=== PATIENT | male | born 1980 | race Caucasian/White ===

== ENCOUNTER 2019-12-03 12:14 | Outpatient (CLI) | payer BC, SELFPAY ==
--- NOTE | ~2019-12-03 | XR_ITS ---
XR_RIBSRTCXR1_CR DATE: 12/03/2019 12:31 INDICATION: Mid to lower right rib pain. Cough. TECHNIQUE: COMPARISON: None FINDINGS: There is callus associated with advanced healing or healed fracture of the posterolateral r ight ninth rib. There is a minimally displaced more recent posterolateral right 10th rib fracture. Status post sternotomy and cardiac valve replacement. There is mild discoid atelectasis or scarring in both lower lungs. No pulmonary consolidation, pleura l effusion or pneumothorax. IMPRESSION: Recent posterolateral right 10th rib fracture Healing or healed right ninth rib fracture Reviewed, dictated and finalized at [facility]. Reviewed, dictated and finalized at location A.
== END 2019-12-03 12:15 | disposition home or self-care (01) ==
LOC: ANHIMG 12:17
PROVIDERS: PCP Physician Assistant; Visit Provider Physician Assistant
DX: S22.31XA Fracture of one rib, right side, initial encounter for closed fracture (principal); X58.XXXA Exposure to other specified factors, initial encounter
CPT/HCPCS: 71101

== ENCOUNTER 2020-09-24 16:20 | Outpatient (CLI) | payer BC, SELFPAY ==
--- NOTE | ~2020-09-24 | XR_ITS ---
XR hip BI 2V w AP pelvis DATE: 09/24/2020 16:48 INDICATION: Right hip and groin pain for 4 to 5 months. No injury. TECHNIQUE: AP pelvis. AP and lateral views of each hip. COMPARISON: None FINDINGS: No pelvic fracture or bone destruction. The pubic symphysis and sacroiliac joints are intac t. Hip joint spaces are symmetric and relatively preserved. No fracture, dislocation, avascular necro sis or bone destruction of either hip is detected. Multiple bilateral calcified pelvic phleboliths. IMPRESSION: No significant radiographic abnormality of the pelvis or either hip Reviewed, dictated and finalized at location B.
== END 2020-09-24 16:21 | disposition home or self-care (01) ==
LOC: ANHIMG 16:29
PROVIDERS: PCP Physician Assistant; Visit Provider Physician Assistant
DX: M25.551 Pain in right hip (principal); M25.552 Pain in left hip
CPT/HCPCS: 73521

== ENCOUNTER 2020-10-08 15:24 | Outpatient (CLI) | payer BC, SELFPAY ==
--- NOTE | ~2020-10-08 | XR_ITS ---
EXAMINATION: XR lumbar spine 6V w bending DATE: 10/08/2020 15:51 INDICATION: Low back pain TECHNIQUE: Anteroposterior, lateral in neutral, flexion and extension, and bilateral oblique views of the lumbar spine, and cone-down lateral view of the lumbosacral junction were obtained. COMPARISON: None. FINDINGS: The vertebral body heights and intervertebral disc spaces are normal. There are 3 mm of ret rolisthesis of L5 on S1. There is no laxity with flexion or extension. There is no fracture. There is mild facet osteoarthritis of the lower lumbar spine. Small degenerative osteophytes project from the anterior endplates of multiple vertebral bodies. IMPRESSION: 1. Mild lumbar spondylosis without acute findings. Reviewed, dictated and finalized at location A.
== END 2020-10-08 15:25 | disposition home or self-care (01) ==
LOC: ANHIMG 15:30
PROVIDERS: PCP Physician Assistant; Visit Provider Physician Assistant
DX: M54.5 Low back pain (principal); M47.816 Spondylosis without myelopathy or radiculopathy, lumbar region
CPT/HCPCS: 72114

== ENCOUNTER 2020-11-24 16:23 | Outpatient (CLI) | payer BC, SELFPAY ==
--- NOTE | ~2020-11-24 | XR_ITS ---
XR hip BI 2V w AP pelvis 11/24/2020 16:37 Indication: Bilateral hip pain Procedure: 3 views of each hip Comparison: 09/24/2020 Findings: There is mild bilateral symmetric osteoarthritis of the hips. No fracture or traumatic stuart lignment. Sacral foramen are symmetric. There are pelvic phleboliths. No significant soft tissue abno rmality. No foreign bodies. Impression: 1: Mild symmetric osteoarthritis of the hips. Reviewed, dictated and finalized at location A. Impression: 1: Mild symmetric osteoarthritis of the hips.
== END 2020-11-24 16:24 ==
LOC: MICIMG 16:24
PROVIDERS: Visit Provider Nurse Practitioner Adult Health
DX: M16.0 Bilateral primary osteoarthritis of hip (principal)
CPT/HCPCS: 73521

== ENCOUNTER 2020-12-25 15:25 | Outpatient (CLI) | payer BC, SELFPAY ==
--- NOTE | ~2020-12-25 | MR_ITS ---
EXAMINATION: MR lumbar spine wo con DATE: 12/25/2020 15:54 INDICATION: Lumbar radiculopathy. TECHNIQUE: Magnetic resonance imaging (MRI) of the lumbar spine was performed without intravenous con trast. Sequences included sagittal T2-weighted FSE, sagittal T2-weighted FS FSE, sagittal T1-weighted FSE, and axial T2-weighted FSE. COMPARISON: Lumbar spine radiographs 10/08/2020 FINDINGS: Bone alignment is normal. There are Schmorl's nodes at many levels. There is mildly decreas ed disc height at L3-L4. The distal spinal cord signal intensity is normal. The conus medullaris is a t L1-L2. Epidural lipomatosis is noted. The following disc levels are specifically discussed: L1-L2: The disc does not extend beyond the endplate margin. There is mild bilateral facet joint osteo arthritis. There is no neural foraminal stenosis. There is no central canal stenosis. L2-L3: The disc does not extend beyond the endplate margin. There is mild bilateral facet joint osteo arthritis. There is no neural foraminal stenosis. There is no central canal stenosis. L3-L4: There is a left foraminal protrusion. There is mild bilateral facet joint osteoarthritis. Ther e is moderate left neural foraminal stenosis. There is no central canal stenosis. L4-L5: The disc is bulging. There is mild bilateral facet joint osteoarthritis. There is mild bilater al neural foraminal stenosis. There is mild central canal stenosis. L5-S1: The disc is mildly bulging and has an annular fissure. There is mild bilateral facet joint ost eoarthritis. There is mild bilateral neural foraminal stenosis. There is no central canal stenosis. IMPRESSION: 1. Mild lumbar spondylosis. Reviewed, dictated and finalized at location A. IMPRESSION: 1. Mild lumbar spondylosis.
== END 2020-12-25 15:26 ==
LOC: MICIMG 15:26
PROVIDERS: Visit Provider Nurse Practitioner Adult Health
DX: M47.26 Other spondylosis with radiculopathy, lumbar region (principal)
CPT/HCPCS: 72148

== ENCOUNTER 2022-09-01 08:52 | Emergency (ER) | payer BC, SELFPAY ==
--- NOTE | ~2022-09-01 | CT_ITS ---
EXAMINATION: CT soft tissue neck w con DATE: 09/01/2022 10:06 INDICATION: Neck swelling. Feeling sick for one week. Sore throat. TECHNIQUE: Computed tomography (CT) of the neck was performed with 75 mL Omnipaque-350 intravenous co ntrast. Automated exposure control and iterative reconstruction technique were employed. The dose-susan gth product was 560.01 mGy-cm. COMPARISON: None FINDINGS: There is mucosal thickening in the pharynx. There is enlargement of the right palatine tons il. There is thickening of the epiglottis and aryepiglottic folds. There is fat stranding in the neck , right worse than left, consistent with edema versus inflammation. There are no pathologically enlar ged lymph nodes. There is mild plaque in the proximal left internal carotid artery with 0% stenosis r elative to normal distal artery lumen diameter. There is kyphosis and mild spondylosis of cervical sp ine. IMPRESSION: 1. Mucosal thickening involving the pharynx and supraglottic larynx, consistent with inflammation (in cluding epiglottitis). No abscess. Reviewed, dictated and finalized at location A. L STRETCHER IMPRESSION: 1. Mucosal thickening involving the pharynx and supraglottic larynx, consistent with inflammation (including epiglottitis). No abscess.
--- NOTE | ~2022-09-01 | XR_ITS ---
Clinical Indication: Cough PA and lateral views of the chest: Comparison: None Findings: The lungs are clear, without evidence of focal consolidation or pleural effusion. Cardiome diastinal silhouette is prominent, status post median sternotomy and probable cardiac valve replaceme nt. Bones and soft tissues are unremarkable. Impression: Clear lungs. Prior cardiac surgery. Reviewed, dictated and finalized at location . O LAB TECHNICIAN Impression: Clear lungs. Prior cardiac surgery.
[2022-09-01 08:59] VITALS: BP 156/100; PULSE 99; RESP 18; TEMP 36.8; O2SAT 100
--- NOTE | 2022-09-01 09:12 | ECG_ITS ---
Measurements Intervals [place] Rate: 99 P: 38 WI: 176 QRS: 46 QRSD: 101 T: 101 QT: 378 QTc: 486 Interpretive Statements SINUS RHYTHM POSSIBLE LEFT ATRIAL ENLARGEMENT BORDERLINE R WAVE PROGRESSION, ANTERIOR LEADS NONSPECIFIC ST & T-WAVE ABNORMALITY- ANT/HIGH LAT LEADS BASELINE WANDER- I, II, AVR, AVL, V4 BORDERLINE ECG NO PREVIOUS ECG AVAILABLE FOR COMPARISON Electronically Signed On 09-01-2022 9:42:13 [employer] by Donnell Melendez D.O.
--- NOTE | 2022-09-01 09:17 | ED.GENADULT ---
HPI - General Adult General Chief complaint: Unspecified <Maira Aguilar Cristela APPLIQUE SEWER - Last Filed: 09/01/22 11:06> Stated complaint: R NECK SWELLING <Maira Archibald APPLIQUE SEWER - Last Filed: 09/01/22 11:06> Time Seen by Provider: 09/01/22 09:00 <Maira Archibald APPLIQUE SEWER - Last Filed: 09/01/22 11:06> Source: patient <Maira UrbanoNegro Cristela APPLIQUE SEWER - Last Filed: 09/01/22 11:06> Mode of arrival: ambulatory <Maira Archibald APPLIQUE SEWER - Last Filed: 09/01/22 11:06> Limitations: no limitations <Maira Archibald APPLIQUE SEWER - Last Filed: 09/01/22 11:06> History of Present Illness HPI narrative: 41-year-old male with history of mechanical valve currently on Coumadin presents today with complaints of right neck swelling. Patient was seen in the urgent care this morning and sent to the ER. Patient has had a history of having a sore throat, left ear pain, cold symptoms , for the last 1 to 2 weeks. Patient states his left ear has been bothering him since he got sick. Patient denies being on any antibiotics. This is the first time he has been seen for this issue. Patient denies any fever, body aches, chills in the last 48 hours. Patient states he has bitten his tongue twice recently. Last was yesterday where it had bled almost all day long. He states that it stopped bleeding sometime last night. He awoke this morning and noticed that his voice was not the same and his breathing was not the same although he denies difficulty in breathing. He did go to work this morning where a coworker had noted that he was swollen on the right side. At that time is when he decided to go to the urgent care. Patient arrives to the ER today currently tachycardic at 99 oxygen level 100% on room air, BP 156/100. Currently calm and cooperative. He does feel like there is something in his throat and keeps clearing and coughing up. Significant swelling noted to the right side of the neck. Hematoma noted behind the left eardrum. Bruising with a purple color noted to the right upper arm. Green-colored bruising noted to the abdomen. Patient denies any nausea, vomiting, abdominal pain. Patient's last INR was done about 2 weeks ago where he states it was 2.8. His INR Coumadin was not adjusted at that time. <Maira Archibald - Last Filed: 09/01/22 11:06> Onset (ago): week(s) <Maira Archibald APPLIQUE SEWER - Last Filed: 09/01/22 11:06> Related Data Home medications: Home Medications Medication Instructions Recorded Confirmed carvedilol 6.25 mg tablet 6.25 mg PO Q12H 11/29/19 02/03/22 cetirizine 10 mg tablet (Zyrtec) 10 mg PO DAILY 11/29/19 02/03/22 warfarin 2 mg tablet 2 mg PO DAILY 11/29/19 02/03/22 <Maira Archibald, - Last Filed: 09/01/22 11:06> Allergies/adverse reactions: Allergies Allergy/AdvReac Type Severity Reaction Status Date / Time morphine Allergy Mild Nausea and Verified 09/01/22 09:21 Vomiting <Maira Archibald, - Last Filed: 09/01/22 11:06> Review of Systems Review of Systems: All systems reviewed & are unremarkable except as noted in HPI and below <Maira Archibald Last Filed: 09/01/22 11:06> Constitutional: Constitutional: Reports as per HPI, Denies body ache(s), Denies chills, Denies fatigue, Denies fever(s), Denies night sweats and Denies poor appetite <Maira Archibald, APPLIQUE SEWER - Last Filed: 09/01/22 11:06> Eyes: Eyes: Reports no additional eye complaints <Maira Archibald - Last Filed: 09/01/22 11:06> ENT: Reports as per HPI, Reports otalgia (left ear since symptoms started), Reports sore throat and Reports throat swelling <Maira Archibald, - Last Filed: 09/01/22 11:06> Cardiovascular: Cardiovascular: Reports no additional cardiovascular complaints, Denies chest pain, Denies chest pain at rest and Denies chest pain with activity <Maira Archibald APPLIQUE SEWER - Last Filed: 09/01/22 11:06> Respiratory: Comments: breathing is different but denies sob of difficulty breathing. <Maira Archibald, APPLIQUE SEWER -
[2022-09-01] MEDS: SODIUM CHLORIDE 0.9% IV 1,000 ML 999 ML IV CONT (09:27)
[2022-09-01 09:29] LABS: Basophils Percent Auto 0.4 % (0.2-1.2); Eosinophils Absolute Auto 0.1 K/mm3 (0-0.3); Eosinophils Percent Auto 1.8 % (0-4.4); Hematocrit 37.8 % (42.0-52.0); Hemoglobin 13.2 g/dL (14.0-18.0); Immature Granulocyte Absolute 0.04 K/mm3 (0.00-0.031); Immature Granulocyte Percent A 0.6 % (0-0.5); Immature Platelet Fraction Pct 2.5 % (0.9-11.2); Lymphocytes Absolute Auto 0.72 K/mm3 (0.9-3.2); Lymphocytes Percent Auto 10.7 % (18.3-44.2); Mean Corpuscular HGB Conc 34.9 g/dl (32-36); Mean Corpuscular Hemoglobin 30.6 pg (26-34); Mean Corpuscular Volume 87.7 fl (80-100); Mean Platelet Volume 9.6 fl (7.4-10.4); Monocytes Absolute Auto 0.5 K/mm3 (0.1-0.6); Monocytes Percent Auto 7.3 % (2.6-8.5); Neutrophils Absolute Auto 5.4 K/mm3 (1.3-6.7); Neutrophils Percent Auto 79.2 % (45.5-73.1); Platelet Count Result 137 k/mm3 (150-375); Red Blood Count 4.31 M/mm3 (4.6-6.20); Red Cell Distribution Width 13.1 % (11.5-14.5); White Blood Count 6.8 K/mm3 (4.5-10.0)
[2022-09-01 09:40] LABS: Prothrombin Time 88.9 Seconds (11.1-14.7)
[2022-09-01 09:46] LABS: Alanine Aminotransferase 79 U/L (6-50); Albumin Level 4.9 g/dL (3.5-5.1); Alkaline Phosphatase 91 U/L (38-126); Anion Gap 9 mmol/L (8-16); Aspartate Amino Transferase 92 U/L (17-59); Bilirubin,Total 0.9 mg/dL (0.2-1.3); Blood Urea Nitrogen 16 mg/dL (9-20); CRP 4.4 mg/dL (<1.0); Calcium 9.4 mg/dL (8.4-10.2); Carbon Dioxide 25 mmol/L (22-30); Chloride 100 mmol/L (98-107); Estimated CRCL calculation 107 ml/min; Estimated Glomerular Filt Rate > 60; Glucose 128 mg/dL (65-110); Lactic Acid Reflex 1.8 mmol/L (0.7-2.0); Potassium 3.9 mmol/L (3.4-5.0); Sodium 134 mmol/L (137-145)
[2022-09-01 09:58] VITALS: RESP 18; O2SAT 99
[2022-09-01 10:04] VITALS: PULSE 97; RESP 17; O2SAT 99
[2022-09-01 10:07] LABS: Partial Thromboplastin Time 168.3 SECONDS (22.3-36.8)
--- NOTE | 2022-09-01 10:52 | PC.NURSE ---
Report called to [facility] at 1052 to Brenda LYNNE. No questions from receiving RN.
[2022-09-01 11:29] VITALS: BP 153/99; PULSE 100; RESP 17; O2SAT 98
== END 2022-09-01 11:50 | disposition short-term general hospital (02) ==
PROVIDERS: Emergency Provider Nurse Practitioner Family; PCP Physician Assistant
DX: R22.1 Localized swelling, mass and lump, neck (principal); R79.1 Abnormal coagulation profile; Z95.2 Presence of prosthetic heart valve; Z79.01 Long term (current) use of anticoagulants; Z87.891 Personal history of nicotine dependence; F10.20 Alcohol dependence, uncomplicated
CPT/HCPCS: 36415; 70491; 71046; 80053; 83605; 85025; 85055; 85610; 85730; 86140; 86850; 86900; 86901; 87040; 93005; 96360; 96361; 99284; 99285; J7030; Q9967

== ENCOUNTER 2023-09-21 20:17 | Emergency (ER) | payer SELFPAY ==
[2023-09-21 20:38] VITALS: BP 120/85; PULSE 108; RESP 16; TEMP 36.4; O2SAT 99
--- NOTE | 2023-09-21 21:27 | ED.GENADULT ---
HPI - General Adult General Chief complaint: Alcohol Stated complaint: etoh withdrawal Time Seen by Provider: 09/21/23 21:10 History of Present Illness HPI narrative: This is a 42-year-old male history of alcoholism presenting for detox. Patient says last drink was at 2:00 a.m. last night. He drinks 12 14 beers per day. Patient is concerned that he is going to go into withdrawal and has had seizures in the past. currently the patient feels slightly anxious. he is complaining of lower back pain from his previous verbal vertebral fractures. Patient denies fevers chills nausea vomiting diarrhea chest pain difficulty breathing Or abdominal pain The patient says he has gone through detox more than 20 times but continues to relapse. 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 Mother No problems noted. Sibling No problems noted. Social History Social History Smoking packs per day: 0.25 Smoking cigarettes per day: 5.0 Years smoked: 10 Smoking pack-years: 2.50 Smoking status: Former smoker Second hand tobacco smoke exposure: Yes Smoking end date: 05/19/21 Alcohol intake: current Substance use: unknown Lack of Transportation: No Lack of Food: Never True Current Housing: I Have Housing Concerned About Future Housing: No Difficulty Paying Gas/Electric Bills: No Difficulty Paying for Meds: No Currently Unemployed: No Education: High School Diploma/GED Difficulty w/ Childcare or Family Care: No Exam Narrative: APPEARANCE: No apparent distress. , no diaphoresis, no tremor Head: atraumatic. EYES: EOMI, NOSE: Atraumatic NECK: Trachea midline RESPIRATORY: No increased rate of breathing clear to auscultation CARDIOVASCULAR: mildly tachycardic ABDOMINAL: soft nontender no guarding or rebound no CVA tenderness MUSCULOSKELETAl: some lower back pain NEURO: Alert. Moving 4/4 extremities SKIN:: Warm, dry. Normal color PSYCHIATRIC: Normal affect Course Vital Signs Vital signs: Vital Signs Temperature 97.5 F L 09/21/23 20:38 Pulse Rate 108 H 09/21/23 20:38 Respiratory Rate 16 09/21/23 20:38 Blood Pressure 120/85 09/21/23 20:38 Pulse Oximetry 99 09/21/23 20:38 Oxygen Delivery Room Air 09/21/23 20:38 Temperature 97.5 F L 09/21/23 20:38 Pulse Rate 100 09/21/23 23:25 Respiratory Rate 20 09/21/23 23:25 Blood Pressure 128/82 09/21/23 23:25 Pulse Oximetry 98 09/21/23 23:25 Oxygen Delivery Room Air 09/21/23 20:38 Medical Decision Making [facility] Narrative Medical decision making narrative: -Course: 42-year-old presenting with concerns about being alcohol withdrawal. Patient's alcohol level was 370. No concern for withdrawal at this time. Patient did have slight alcoholic ketoacidosis was treated with thyme in D5. Valium and Tylenol for his lower back pain. Lipase was slightly elevated but on initial and re-evaluation the patient is not complaining of abdominal pain and has benign abdominal exam. Patient will be discharged with Librium and instructed follow-up with primary care physician for further management.
[2023-09-21 21:42] LABS: Basophils Absolute Auto 0.2 K/mm3 (0.0-0.1); Basophils Percent Auto 2.4 % (0.2-1.2); Eosinophils Percent Auto 0.6 % (0-4.4); Hemoglobin 13.6 g/dL (14.0-18.0); Immature Granulocyte Absolute 0.03 K/mm3 (0.00-0.031); Immature Granulocyte Percent A 0.5 % (0-0.5); Lymphocytes Absolute Auto 1.19 K/mm3 (0.9-3.2); Lymphocytes Percent Auto 19.3 % (18.3-44.2); Mean Corpuscular HGB Conc 33.2 g/dl (32-36); Mean Corpuscular Hemoglobin 29.1 pg (26-34); Mean Corpuscular Volume 87.6 fl (80-100); Monocytes Absolute Auto 0.1 K/mm3 (0.1-0.6); Monocytes Percent Auto 2.1 % (2.6-8.5); Neutrophils Absolute Auto 4.6 K/mm3 (1.3-6.7); Neutrophils Percent Auto 75.1 % (45.5-73.1); Platelet Count Result 342 k/mm3 (150-375); Red Blood Count 4.68 M/mm3 (4.6-6.20); Red Cell Distribution Width 15.2 % (11.5-14.5); White Blood Count 6.2 K/mm3 (4.5-10.0)
[2023-09-21 21:52] LABS: Prothrombin Time 13.2 Seconds (11.1-14.7)
[2023-09-21 22:12] LABS: Appearance Urine Clear (Clear); Bacteria Urine 2+ /hpf; Bilirubin Urine Negative (Negative); Blood Urine Trace (Negative); Color Urine Yellow (Yellow); Glucose Urine UA Negative (Negative); Ketones Urine 3+ mg/dL (Negative); Leukocyte Esterase Ur Negative LEU/UL (Negative); Nitrate Urine Negative (Negative); Non Pathogenic Casts 0-2; Protein Urine 2+ mg/dL (Negative); RBC Urine 0-2 /hpf (0-2); Specific Grav Ur 1.017 (1.001-1.035); Squamous Epithelial Cell Urine None Seen /hpf (Few); WBC Urine 0-5 /hpf (0-3); pH Urine 5.5 (5.0-9.0)
[2023-09-21 22:13] LABS: Add Urine Microscopic? YES
[2023-09-21 22:16] LABS: Alanine Aminotransferase 44 U/L (6-50); Albumin Level 4.6 g/dL (3.5-5.1); Alkaline Phosphatase 109 U/L (38-126); Anion Gap 25 mmol/L (8-16); Aspartate Amino Transferase 77 U/L (17-59); Bilirubin,Total 0.7 mg/dL (0.2-1.3); Blood Urea Nitrogen 12 mg/dL (9-20); Calcium 8.9 mg/dL (8.4-10.2); Carbon Dioxide 15 mmol/L (22-30); Chloride 101 mmol/L (98-107); Estimated CRCL calculation 104 ml/min; Estimated Glomerular Filt Rate > 60; Glucose 72 mg/dL (65-110); Lipase 1030 U/L (23-300); Magnesium 1.9 mg/dL (1.6-2.3); Phosphorus 3.5 mg/dL (2.5-4.5); Potassium 4.4 mmol/L (3.4-5.0); Sodium 141 mmol/L (137-145)
[2023-09-21 22:17] LABS: Ethanol 374 mg/dL (<10)
[2023-09-21 22:24] LABS: Amphetamine Screen Urine Negative (Negative); Barbiturate Screen Urine Positive (Negative); Benzodiazepines Screen Urine Negative (Negative); Cannabinoid Screen Urine Negative (Negative); Cocaine Screen Urine Negative (Negative); Methadone Screen Urine Negative (Negative); Opiate Screen Urine Negative (Negative); Phencyclidine Screen Urine Negative (Negative)
[2023-09-21] MEDS: THIAMINE 500 MG/NS 100 ML 500 MG/100 ML BAG 200 MG IVPB (22:25)
[2023-09-21] MEDS: diazePAM INJ (*CRX) 10 MG/2 ML SYRINGE IV PUSH (23:13)
[2023-09-21] MEDS: ACETAMINOPHEN 500 MG TABLET 1000 MG PO (23:14)
[2023-09-21 23:25] VITALS: BP 128/82; PULSE 100; RESP 20; O2SAT 98
[2023-09-21 23:57] VITALS: BP 120/77; PULSE 84; RESP 18; O2SAT 100
== END 2023-09-21 23:59 | disposition home or self-care (01) ==
PROVIDERS: Emergency Provider Emergency Medicine; PCP Physician Assistant
DX: F10.288 Alcohol dependence with other alcohol-induced disorder (principal); Y90.8 Blood alcohol level of 240 mg/100 ml or more; Z79.01 Long term (current) use of anticoagulants; Z87.891 Personal history of nicotine dependence
CPT/HCPCS: 36415; 80053; 80307; 83690; 83735; 84100; 85025; 85610; 85730; 96365; 99284; A9270; J3360; J3411; J7042